=== PATIENT | female | born 1995 | race Two or more races ===

== ENCOUNTER 2024-12-28 16:10 | Emergency (ER) | payer MEDICAID, SELFPAY ==
[2024-12-28 16:11] VITALS: BMI 38.2
[2024-12-28 16:17] VITALS: BP 124/83; PULSE 107; RESP 20; TEMP 37.7; O2SAT 98
--- NOTE | 2024-12-28 16:51 | PD.EDFMALE ---
ED Female Urogenital RME/HPI General Chief complaint: Urogenital-Female Stated complaint: VAGINAL PAIN Time Seen by Provider: 12/28/24 16:29 Arrival date/time: 12/28/24 16:10 29-year-old female with no significant medical problems presents emergency department today for complaints of vaginal pain. Patient reports symptoms ongoing x 3 years worse for the last 3 days. Patient reports no fever nausea or vomiting no dysuria no chance of Limitations: no limitations Related Data Home Medications ?Medication ?Instructions ?Recorded ?Confirmed vits no.124-ferrous fum 1 tab PO DAILY 09/26/21 09/26/21 27 mg iron-folic acid 800 mcg tablet ( Vitamin) Previous Rx's ?Medication ?Instructions ?Recorded hydrocodone 5 mg-acetaminophen 325 1 tab PO Q4H PRN pain #20 tabs 09/28/21 mg tablet docusate sodium 100 mg capsule 100 mg PO BID #60 caps 04/03/23 (Colace) hydrocodone 5 mg-acetaminophen 325 1 tab PO Q6H PRN pain #30 tabs 04/03/23 mg tablet ibuprofen 600 mg tablet 600 mg PO Q6H PRN pain #60 tabs 04/03/23 lanolin 50 % topical ointment 1 applic topical TID PRN skin 04/03/23 irritation #15 tubes clindamycin HCl 150 mg capsule 450 mg (3 x 150 mg) PO TID 7 days 12/28/24 #63 caps hydrocodone 5 mg-acetaminophen 325 1 tab PO BID PRN pain #10 tabs 12/28/24 mg tablet ibuprofen 800 mg tablet 800 mg PO TID PRN pain #30 tabs 12/28/24 Allergies Allergy/AdvReac Type Severity Reaction Status Date / Time No Known Allergies Allergy Verified 12/28/24 16:13 Review of Systems Review of Systems Systems Reviewed: All systems reviewed, normal except as documented Constitutional Constitutional: Reports system reviewed and no additional complaints, except as documented, Denies fever(s) and Denies headache(s) Eyes Eyes: Reports system reviewed and no additional complaints, except as documented and Denies blurry vision ENT Ears, Nose, Mouth, and Throat: Reports system reviewed and no additional complaints, except as documented, Denies headache(s), Denies nasal congestion and Denies nasal discharge Cardiovascular Cardiovascular: Reports system reviewed and no additional complaints, except as documented, Denies chest pain and Denies dyspnea Respiratory Respiratory: Reports system reviewed and no additional complaints, except as documented, Denies chest congestion, Denies cough and Denies dyspnea Gastrointestinal Gastrointestinal: Reports system reviewed and no additional complaints, except as documented and Denies abdominal pain Genitourinary Genitourinary: Reports system reviewed and no additional complaints, except as documented and Reports other (Vagina swelling) Integumentary/Breasts Skin/Breast: Reports system reviewed and no additional complaints, except as documented and Denies rash Neurologic Neurologic: Reports system reviewed and no additional complaints, except as documented, Reports as per HPI and Denies headache(s) Past Medical History Past Medical History NEUROLOGIC: Negative Neurological Disorders or Seizures CARDIAC: Negative Cardiac Disorders or Congestive Heart Failure RESPIRATORY: Negative Chronic Obstructive Pulmonary Disease (COPD) or Asthma GASTROINTESTINAL: Negative Gastrointestinal Disorders or Hepatitis GENITOURINARY: Negative Genitourinary Disorders or Renal Disease MUSCULOSKELETAL: Negative Musculoskeletal Disorders or Scoliosis ENDOCRINE: Negative Endocrine Disorders, Diabetes Mellitus Type 1 or Diabetes Mellitus Type 2 HEMATOLOGIC: Positive Blood Disorders and Anemia (CHILD) PSYCHO/SOCIAL: Negative Depression, Anxiety or Depression OTHER HISTORY: Positive Hospitalization (LABOR); Negative Autoimmune Disease, Blood Transfusions, Blood Transfusion Reaction, Anesthesia Reactions, Chicken Pox, Mumps, Rubella (Sudanese Measles), Pertussis or Cancer Family History FAMILY HISTORY: Positive Family Respiratory Disorders (SISTER-ASTHMA), Family Gastrointestinal Problems (UNCLE-ABD.DISORDER) and Family Cancer (UNCLE- COLON CA); Negative Family Psychiatric Problems, Family Cardiac Disorders, Family Surgery or Family Anesthesia Reaction Social History SMOKING STATUS: Never smoker ED Exam General Limitations: Present no limitations General appearance: Present alert and in no apparent distress Head Head exam: Present atraumatic Eye Eye exam: Present normal appearance, PERRL and EOMI ENT ENT exam: Present normal exam, normal oropharynx and mucous membranes moist Neck Neck exam: Present normal inspection, full ROM and trachea midline Chest Chest inspection: Present normal inspection and symmetric chest wall rise Respiratory Respiratory exam: Present normal lung sounds bilaterally Cardiovascular Cardiovascular exam: Present regular rate, normal rhythm and normal heart sounds Abdominal Exam Abdominal exam: Present soft and normal bowel sounds Genitals Female CloseUp:  1. Swelling Extremities Exam Extremities exam: Present normal inspection and full ROM Back Exam Back exam: Present normal inspection and full ROM Neurological Exam Neurological exam: Present alert, oriented X3 and CN II-XII intact Psychiatric Psychiatric exam: Present normal affect and normal mood Skin Skin exam: Present warm, dry, intact and normal color Course Quality Measures none Orders Category Date Time Status Lidocaine 1% 20 ml [Xylocaine 1% 20 ML] Med 12/28/24 16:29 Discontinued 2.1 ml INFL X1 ONE cefTRIAXone [Rocephin] Med 12/28/24 16:29 Discontinued 1,000 mg IM X1 ONE Vital Signs Vital signs: Vital Signs Temperature 99.8 F 12/28/24 16:17 Pulse Rate 107 H 12/28/24 16:17 Respiratory Rate 20 12/28/24 16:17 Blood Pressure 124/83 12/28/24 16:17 Pulse Oximetry (%) 98 12/28/24 16:17 Oxygen Delivery Method Room Air 12/28/24 16:17 O2 saturation 98% on room air with normal limits Urogenital - Female MDM Narrative MDM Narrative:: 29-year-old female with no significant medical problems presents emergency department today for complaints of vaginal pain. Patient reports symptoms ongoing x 3 years worse for the last 3 days. Patient reports no fever nausea or vomiting no dysuria no chance of On exam patient well-appearing patient does not appear ill or toxic patient does not appear in acute distress On exam patient appears to have a Bartholin cyst but as the symptoms been ongoing x 3 years I believe the patient needs a full gynecological evaluation. Patient given injection of Rocephin discharged home antibiotics Consultation: I spoke with Dr. Vaz [employer] states he will see the patient in his office on Thursday this was explained to the patient Patient data External records reviewed:: [facility] previous records Clinical information provided by:: patient Social determinants that could affect healthcare access:: none Patient has the following chronic illnesses:: None How is presenting disease/condition affected by chronic disease/condition?: no chronic disease Evaluation data The following diagnostics were reviewed and interpreted by me:: other (specify) Lab and/or radiology exams considered but not ordered:: Consider not ordered Interpretation Summary: N/A Medications / Prescriptions Medications or Prescriptions considered but not ordered:: Given Medication administrations:: Medication Administration History Discontinued Medications Ceftriaxone Sodium (Ceftriaxone Sod Inj 1,000 Mg Vial) 1,000 mg IM X1 ONE Stop: 12/28/24 16:30 Lidocaine HCl (Lidocaine Hcl 1% 20 Ml Vial) 2.1 ml INFL X1 ONE Stop: 12/28/24 16:30 Given Consultations Consultation(s) initiated? (list below): Yes Diagnosis Urogenital Female Differential Diagnosis: bacterial vaginosis, cyst of Bartholin's gland and cystitis Most likely diagnosis given after review of the tests above:: Bartholin cyst Admission Indicated Admission indicated?: not indicated Admission Request Was there a request for admission?: No Disposition Plan Disposition Plan: Discharge Discharge Attestation Discharge Attestation: The patient and all family members were given an opportunity to ask questions and understood the discharge instructions. Discharge instructions specifically effects, indications for sooner follow up or return to the emergency department, and the expected course of current diagnosis. Patient condition: Stable Discharge Plan Plan Patient Disposition: HOME (Self Care) Disposition Comment: Stable Prescriptions/Referrals Prescriptions/Med Rec: New clindamycin HCl 150 mg capsule 450 mg PO TID 7 Days Qty: 63 0RF ibuprofen 800 mg tablet 800 mg PO TID PRN (Reason: pain) Qty: 30 0RF hydrocodone-acetaminophen 5-325 mg tablet 1 tab PO BID MDD 10 PRN (Reason: pain) Qty: 10 0RF No Action Vitamin 27 mg iron- 800 mcg Tablet 1 tab PO DAILY hydrocodone-acetaminophen 5-325 mg tablet 1 tab PO Q4H MDD 5 PRN (Reason: pain) Qty: 20 0RF docusate sodium [Colace] 100 mg capsule 100 mg PO BID Qty: 60 0RF ibuprofen 600 mg tablet 600 mg PO Q6H PRN (Reason: pain) Qty: 60 0RF lanolin 50 % ointment 1 applic topical TID PRN (Reason: skin irritation) Qty: 15 0RF hydrocodone-acetaminophen 5-325 mg tablet 1 tab PO Q6H MDD 6 PRN (Reason: pain) Qty: 30 0RF Referrals: Andrea Vaz MD [Physician] - 01/02/25 Problem List Clinical Impression: Bartholin gland cyst Patient/Caregiver Discharge Instructions Education Materials: Bartholin Cyst and Abscess Additional Instructions: Please follow-up with Dr. Vaz Thursday morning at 9 AM for worsening symptoms return immediately please inform the office staff that you were seen in the ER and that he states he will see you Print Language: Macedonian Stand Alone Forms: [employer] Award Info., Patient Portal Info Letter PA/VP CARDIOVASCULAR Supervising Physician PA/VP CARDIOVASCULAR Supervising Physician: Dr parnell
[2024-12-28] MEDS: cefTRIAXone SOD INJ 1,000 MG VIAL 1000 MG IM (17:13)
[2024-12-28] MEDS: LIDOCAINE HCL 1% 20 ML VIAL 2.1 ML INFL (17:15)
== END 2024-12-28 17:18 | disposition home or self-care (01) ==
LOC: SERX 17:20
PROVIDERS: Emergency Provider Emergency Medicine; PCP Family Medicine
DX: N75.0 Cyst of Bartholin's gland (principal)
CPT/HCPCS: 96372; 99283; J0696; J3490

== ENCOUNTER 2024-12-31 11:21 | Emergency (ER) | payer MEDICAID, SELFPAY ==
[2024-12-31 11:50] VITALS: BP 126/85; PULSE 85; RESP 19; TEMP 37.1; O2SAT 99; BMI 40.2
--- NOTE | 2024-12-31 11:57 | EDNOTE_ITS ---
ED General RME/HPI General Chief complaint: General Adult/Misc Complain Stated complaint: GENITAL PAIN Time Seen by Provider: 12/31/24 11:25 Arrival date/time: 12/31/24 11:21 RME / HPI RME / HPI narrative: 29-year-old female patient came in for evaluation regarding vaginal swelling. Patient was diagnosed with Bartholin cyst abscess, and was sent home on clindamycin. Was seen here few days ago. Was advised to follow-up with [facility] however patient appointment will be next week. Patient is having worsening pain cannot even sit down. Denies any fever. Related Data Home Medications ?Medication ?Instructions ?Recorded ?Confirmed vits no.124-ferrous fum 1 tab PO DAILY 09/26/21 27 mg iron-folic acid 800 mcg tablet ( Vitamin) Previous Rx's ?Medication ?Instructions ?Recorded hydrocodone 5 mg-acetaminophen 325 1 tab PO Q4H PRN pa in #20 tabs 09/28/21 mg tablet docusate sodium 100 mg capsule 100 mg PO BID #60 caps 04/03/23 (Colace) hydrocodone 5 mg-acetaminophen 325 1 tab PO Q6H PRN pa in #30 tabs 04/03/23 mg tablet ibuprofen 600 mg tablet 600 mg PO Q6H PRN pain #60 t abs 04/03/23 lanolin 50 % topical ointment 1 applic topical TID PRN skin 04/03/23 irritation #15 tubes clindamycin HCl 150 mg capsule 450 mg (3 x 150 mg) PO TID 7 days 12/28/24 #63 caps hydrocodone 5 mg-acetaminophen 325 1 tab PO BID PRN pa in #10 tabs 12/28/24 mg tablet ibuprofen 800 mg tablet 800 mg PO TID PRN pain #30 t abs 12/28/24 Allergies Allergy/AdvReac Type Severity Reaction Status Date / Time No Known Allergies Allergy Verified 12/28/24 16:13 Review of Systems Review of Systems Narrative Review of Systems: Review of system reviewed and within normal limits except mentioned in HPI ED Exam Narrative Physical exam: VITAL SIGNS: Reviewed. GENERAL APPEARANCE: Alert and interactive, follows commands, no acute distress, HEAD AND FACE: Non-traumatic. ENT: PERRL, pink conjunctivitis, eyelid no trauma, Mucous membrane moist. NECK: Supple, nontender, no nuchal rigidity. CHEST: No tenderness, no crepitus, no paradoxical movement, no retractions. LUNGS: Clear, well ventilated, symmetric, no rales, no wheezing, no ronchi, no stridor, good breath sounds bilaterally. HEART: Regular rate, regular rhythm, no murmur, no gallops. ABDOMEN: Soft, positive bowel sounds, nondistended, no guarding, nontender, no rebound, no masses, RECTAL: Deferred. GENITAL: Deferred. NEUROLOGICAL: Gross motor function intact sensory function intact, Appropriate for age. MUSCULOSKELETAL: low back nontender, full range of motion. EXTREMITIES: Nontender, full range of motion. SKIN: Color pink, dry, no rash, no lacerations, no abrasions, no contusions. LYMPHATICS: Deferred. Course Quality Measures none Orders Category Date Time Status Incision and Drainage Set Up X1 Care 12/31/24 11:59 Active Ketorolac Inj [Toradol Inj] Med 12/31/24 11:59 Discontinued 30 mg IM X1 ONE Lidocaine 1% 20 ml [Xylocaine 1% 20 ML] Med 12/31/24 11:59 Discontinued 10 ml INFL X1 ONE Vital Signs Vital signs: Vital Signs Temperature 98.7 F 12/31/24 11:50 Pulse Rate 85 12/31/24 11:50 Respiratory Rate 19 12/31/24 11:50 Blood Pressure 126/85 H 12/31/24 11:50 Pulse Oximetry (%) 99 12/31/24 11:50 Oxygen Delivery Method Room Air 12/31/24 11:50 Procedures -ED Abscess I/D Site: other (Left inferior vaginal wall) Sedation/analgesia: none Local Anesthetic: lidocaine 1% Amount of anesthesia used (mL): 10 Technique: incised with #11 blade Amount of fluid expressed (mL): 20 Irrigation: Yes Packing used?: plain Complications: other (None) Discharge Plan Plan Patient Disposition: HOME (Self Care) Discharge Disposition comment: stable Prescriptions/Referrals Prescriptions/Med Rec: No Action Vitamin 27 mg iron- 800 mcg Tablet 1 tab PO DAILY hydrocodone-acetaminophen 5-325 mg tablet 1 tab PO Q4H MDD 5 PRN (Reason: pain) Qty: 20 0RF clindamycin HCl 150 mg capsule 450 mg PO TID 7 Days Qty: 63 0RF ibuprofen 800 mg tablet 800 mg PO TID PRN (Reason: pain) Qty: 30 0RF hydrocodone-acetaminophen 5-325 mg tablet 1 tab PO BID MDD 10 PRN (Reason: pain) Qty: 10 0RF docusate sodium [Colace] 100 mg capsule 100 mg PO BID Qty: 60 0RF ibuprofen 600 mg tablet 600 mg PO Q6H PRN (Reason: pain) Qty: 60 0RF lanolin 50 % ointment 1 applic topical TID PRN (Reason: skin irritation) Qty: 15 0RF hydrocodone-acetaminophen 5-325 mg tablet 1 tab PO Q6H MDD 6 PRN (Reason: pain) Qty: 30 0RF Referrals: No Primary/Family,Physician [Primary Care Provider] - In 1 week Problem List Clinical Impression: Bartholin's gland abscess Patient/Caregiver Discharge Instructions Discharge Activity: activity as tolerated Education Materials: Bartholin Cyst and Abscess Additional Instructions: Thank you for the opportunity for serving you today. You are stable for discharged . You are advised to: Follow-up with [facility] as instructed Return to ED for worsening of symptoms Increase oral fluids Take medication as prescribed 3 days ago Mobilized the drain at least 2 cm every day and removed completely in 5 days Print Language: Qatari Stand Alone Forms: [employer] Award Info., Patient Portal Info Letter PA/VINCE Supervising Physician PA/VINCE Supervising Physician: MD Monico MDM Narrative MDM hospital course (for use when minimal MDM required): 29-year-old female patient came in for evaluation regarding vaginal swelling. Patient was diagnosed with Bartholin cyst abscess, and was sent home on clindamycin. Was seen here few days ago. Was advised to follow-up with [facility] however patient appointment will be next week. Patient is having worsening pain cannot even sit down. Denies any fever. Incision and drainage was done by me, see procedure notes patient tolerated the procedure well. I was able to evacuate at least 20 cc of pus. Packing was applied. Patient was advised to follow-up with [facility] next week Medication Administration(s) Medication Administration History Discontinued Medications Ketorolac Tromethamine (Ketorolac Inj 60 Mg/2 Ml Vial) 30 mg IM X1 ONE Stop: 12/31/24 12:00 Last Admin: 12/31/24 12:11 Dose: 30 mg Documented By: ADA Lidocaine HCl (Lidocaine Hcl 1% 20 Ml Vial) 10 ml INFL X1 ONE Stop: 12/31/24 12:00 Last Admin: 12/31/24 12:14 Dose: 10 ml Documented By: ADA Comments: USED BY PROVIDER Toradol IM Diagnosis Differential Diagnosis ED Complaint MDM: Bartholin's gland abscess, cellulitis vagina Diagnoses ruled out and/or further discussions: Bartholin's glands abscess
[2024-12-31] MEDS: KETOROLAC INJ 60 MG/2 ML VIAL 30 MG IM (12:11)
[2024-12-31] MEDS: LIDOCAINE HCL 1% 20 ML VIAL 10 ML INFL (12:14)
== END 2024-12-31 12:47 | disposition home or self-care (01) ==
PROVIDERS: Emergency Provider Emergency Medicine
DX: N75.1 Abscess of Bartholin's gland (principal)
CPT/HCPCS: 56420; 96372; 99283; J1885; J3490

== ENCOUNTER 2025-04-18 14:24 | Emergency (ER) | payer MEDICAID, SELFPAY ==
[2025-04-18 14:43] VITALS: BP 115/74; PULSE 71; RESP 16; TEMP 36.9; O2SAT 97; BMI 34.4
--- NOTE | 2025-04-18 14:50 | PD.EDEXREM ---
ED Extremity Problem RME/HPI General Chief complaint: Extremity Problem,Nontraumatic Stated complaint: Right lower back pain and right leg pain Time Seen by Provider: 04/18/25 14:29 Arrival date/time: 04/18/25 14:24 29-year-old female presents to the emergency department today for complaint of right-sided buttock pain radiating down the right leg patient reports no fever nausea vomiting no abdominal pain or flank pain. Patient reports no saddle anesthesia no loss of bowel or bladder Limitations: no limitations Related Data Home Medications ?Medication ?Instructions ?Recorded ?Confirmed vits no.[id number] fum 1 tab PO DAILY 09/26/21 09/26/21 27 mg iron-folic acid 800 mcg tablet ( Vitamin) Previous Rx's ?Medication ?Instructions ?Recorded hydrocodone 5 mg-acetaminophen 325 1 tab PO Q4H PRN pain #20 tabs 09/28/21 mg tablet docusate sodium 100 mg capsule 100 mg PO BID #60 caps 04/03/23 (Colace) hydrocodone 5 mg-acetaminophen 325 1 tab PO Q6H PRN pain #30 tabs 04/03/23 mg tablet ibuprofen 600 mg tablet 600 mg PO Q6H PRN pain #60 tabs 04/03/23 lanolin 50 % topical ointment 1 applic topical TID PRN skin 04/03/23 irritation #15 tubes hydrocodone 5 mg-acetaminophen 325 1 tab PO BID PRN pain #10 tabs 12/28/24 mg tablet ibuprofen 800 mg tablet 800 mg PO TID PRN pain #30 tabs 12/28/24 cyclobenzaprine 10 mg tablet 10 mg PO TID PRN muscle spasm 10 04/18/25 days #30 tab-caps hydrocodone 5 mg-acetaminophen 325 1 tab PO BID PRN pain #10 tabs 04/18/25 mg tablet ibuprofen 800 mg tablet 800 mg PO TID PRN pain #30 tabs 04/18/25 Allergies Allergy/AdvReac Type Severity Reaction Status Date / Time No Known Allergies Allergy Verified 04/18/25 14:30 Review of Systems Review of Systems Systems Reviewed: All systems reviewed, normal except as documented Constitutional Constitutional: Reports system reviewed and no additional complaints, except as documented, Denies fever(s) and Denies headache(s) Eyes Eyes: Reports system reviewed and no additional complaints, except as documented and Denies blurry vision ENT Ears, Nose, Mouth, and Throat: Reports system reviewed and no additional complaints, except as documented, Denies headache(s), Denies nasal congestion and Denies nasal discharge Cardiovascular Cardiovascular: Reports system reviewed and no additional complaints, except as documented, Denies chest pain and Denies dyspnea Respiratory Respiratory: Reports system reviewed and no additional complaints, except as documented, Denies chest congestion, Denies cough and Denies dyspnea Gastrointestinal Gastrointestinal: Reports system reviewed and no additional complaints, except as documented and Denies abdominal pain Musculoskeletal Musculoskeletal: Reports system reviewed and no additional complaints, except as documented, Denies deformity, Denies numbness, Reports stiffness, Denies tingling and Reports other (Right-sided sciatica) Integumentary/Breasts Skin/Breast: Reports system reviewed and no additional complaints, except as documented and Denies rash Neurologic Neurologic: Reports system reviewed and no additional complaints, except as documented, Reports as per HPI, Denies headache(s), Denies numbness and Denies tingling Past Medical History Past Medical History NEUROLOGIC: Negative Neurological Disorders or Seizures CARDIAC: Negative Cardiac Disorders or Congestive Heart Failure RESPIRATORY: Negative Chronic Obstructive Pulmonary Disease (COPD) or Asthma GASTROINTESTINAL: Negative Gastrointestinal Disorders or Hepatitis GENITOURINARY: Negative Genitourinary Disorders or Renal Disease MUSCULOSKELETAL: Negative Musculoskeletal Disorders or Scoliosis ENDOCRINE: Negative Endocrine Disorders, Diabetes Mellitus Type 1 or Diabetes Mellitus Type 2 HEMATOLOGIC: Positive Blood Disorders and Anemia (CHILD) PSYCHO/SOCIAL: Negative Depression, Anxiety or Depression OTHER HISTORY: Positive Hospitalization (LABOR); Negative Autoimmune Disease, Blood Transfusions, Blood Transfusion Reaction, Anesthesia Reactions, Chicken Pox, Mumps, Rubella ([place] Measles), Pertussis or Cancer Family History FAMILY HISTORY: Positive Family Respiratory Disorders (SISTER-ASTHMA), Family Gastrointestinal Problems (UNCLE-ABD.DISORDER) and Family Cancer (UNCLE- COLON CA); Negative Family Psychiatric Problems, Family Cardiac Disorders, Family Surgery or Family Anesthesia Reaction Social History SMOKING STATUS: Never smoker ED Exam General Limitations: Present no limitations General appearance: Present alert and in no apparent distress Head Head exam: Present atraumatic, normocephalic and normal inspection Eye Eye exam: Present normal appearance, PERRL and EOMI ENT ENT exam: Present normal exam, normal oropharynx and mucous membranes moist Neck Neck exam: Present normal inspection, full ROM and trachea midline Chest Chest inspection: Present normal inspection and symmetric chest wall rise Respiratory Respiratory exam: Present normal lung sounds bilaterally Cardiovascular Cardiovascular exam: Present regular rate, normal rhythm and normal heart sounds Abdominal Exam Abdominal exam: Present soft and normal bowel sounds Extremities Exam Extremities exam: Present full ROM, tenderness and normal capillary refill; Absent pedal edema, joint swelling or calf tenderness Back Exam Back exam: Present normal inspection, full ROM, muscle spasm, sciatic notch tenderness (R) and straight leg raise (R); Absent CVA tenderness (R), CVA tenderness (L) or paraspinal tenderness Back 1 view image:  1. Sciatica Neurological Exam Neurological exam: Present alert, oriented X3 and CN II-XII intact Psychiatric Psychiatric exam: Present normal affect and normal mood Skin Skin exam: Present warm, dry, intact and normal color Course Quality Measures none Orders Category Date Time Status Dexamethasone Inj [Decadron Inj] Med 04/18/25 14:47 Discontinued 10 mg IM X1 ONE Vital Signs Vital signs: Vital Signs Temperature 98.5 F 04/18/25 14:43 Pulse Rate 71 04/18/25 14:43 Respiratory Rate 16 04/18/25 14:43 Blood Pressure 115/74 04/18/25 14:43 Pulse Oximetry (%) 97 04/18/25 14:43 Oxygen Delivery Method Room Air 04/18/25 14:43 O2 saturation 97% room air with normal limits Extremity Problem MDM Narrative MDM Narrative:: 29-year-old female presents to the emergency department today for complaint of right-sided buttock pain radiating down the right leg patient reports no fever nausea vomiting no abdominal pain or flank pain. Patient reports no saddle anesthesia no loss of bowel or bladder On exam patient well-appearing patient does not appear toxic no acute distress patient was steady gait At this time I do not believe emergent imaging is necessary and patient to follow-up on an outpatient basis for imaging if pain persist Symptoms highly consistent with sciatica Patient given meds here Patient discharged home in no distress to follow-up with primary care doctor in the next 24 to 48 hours and for any worsening symptoms to return to the ER immediately Patient data External records reviewed:: [facility] previous records Clinical information provided by:: patient Social determinants that could affect healthcare access:: none Patient has the following chronic illnesses:: None How is presenting disease/condition affected by chronic disease/condition?: no chronic disease Evaluation data The following diagnostics were reviewed and interpreted by me:: other (specify) (N/A) Lab and/or radiology exams considered but not ordered:: Considered r not indicated Interpretation Summary: N/A Medications / Prescriptions Medications or Prescriptions considered but not ordered:: Given Medication administrations:: Medication Administration History Discontinued Medications Dexamethasone Sodium Phosphate (Dexamethasone Sod Phos Inj 10 Mg/Ml Vial) 10 mg IM X1 ONE Stop: 04/18/25 14:48 Last Admin: 04/18/25 15:32 Dose: 10 mg Documented By: Given Consultations Consultation(s) initiated? (list below): No Diagnosis Extremity Problem Differential Diagnosis: other (Sciatica) Most likely diagnosis given after review of the tests above:: Sciatica pain hip pain, hip strain Admission Indicated Admission indicated?: not indicated Admission Request Was there a request for admission?: No Disposition Plan Disposition Plan: Discharge Discharge Attestation Discharge Attestation: The patient and all family members were given an opportunity to ask questions and understood the discharge instructions. Discharge instructions specifically effects, indications for sooner follow up or return to the emergency department, and the expected course of current diagnosis. Patient condition: Stable Discharge Plan Plan Patient Disposition: HOME (Self Care) Discharge Disposition comment: Stable Prescriptions/Referrals Prescriptions/Med Rec: New cyclobenzaprine 10 mg tablet 10 mg PO TID PRN (Reason: muscle spasm) 10 Days Qty: 30 0RF ibuprofen 800 mg tablet 800 mg PO TID PRN (Reason: pain) Qty: 30 0RF hydrocodone-acetaminophen 5-325 mg tablet 1 tab PO BID MDD 10 PRN (Reason: pain) Qty: 10 0RF No Action Vitamin 27 mg iron- 800 mcg Tablet 1 tab PO DAILY hydrocodone-acetaminophen 5-325 mg tablet 1 tab PO Q4H MDD 5 PRN (Reason: pain) Qty: 20 0RF ibuprofen 800 mg tablet 800 mg PO TID PRN (Reason: pain) Qty: 30 0RF hydrocodone-acetaminophen 5-325 mg tablet 1 tab PO BID MDD 10 PRN (Reason: pain) Qty: 10 0RF docusate sodium [Colace] 100 mg capsule 100 mg PO BID Qty: 60 0RF ibuprofen 600 mg tablet 600 mg PO Q6H PRN (Reason: pain) Qty: 60 0RF lanolin 50 % ointment 1 applic topical TID PRN (Reason: skin irritation) Qty: 15 0RF hydrocodone-acetaminophen 5-325 mg tablet 1 tab PO Q6H MDD 6 PRN (Reason: pain) Qty: 30 0RF Problem List Clinical Impression: Right sided sciatica Patient/Caregiver Discharge Instructions Education Materials: ED Sciatica Additional Instructions: Please follow up with your primary care doctor in the next 24-48hrs for any worsening symptoms return here immediately Print Language: Nam[place]ian Stand Alone Forms: Carolyn Award Info., Work/School Release, Patient Portal Info Letter PA/PEDIATRIC NEUROLOGIST Supervising Physician PA/PEDIATRIC NEUROLOGIST Supervising Physician: Dr. hernandez
[2025-04-18] MEDS: DEXAMETHASONE SOD PHOS INJ 10 MG/ML VIAL IM (15:32)
== END 2025-04-18 16:19 | disposition home or self-care (01) ==
LOC: SERX 15:11
PROVIDERS: Emergency Provider Family Medicine; PCP Family Medicine
DX: M54.41 Lumbago with sciatica, right side (principal)
CPT/HCPCS: 96372; 99283; J1100